=== PATIENT | male | born 1985 | race Caucasian/White ===

== ENCOUNTER 2018-05-02 19:48 | Emergency (ER) | payer MEDICAID ==
[~2018-05-02] VITALS: Ht 177.8 cm; Wt 75.0 kg
[2018-05-02 19:49] VITALS: Ht 177.8 cm; Wt 75.0 kg
[2018-05-02 22:31] VITALS: BP 111/66
== END 2018-05-02 22:31 | disposition home or self-care (01) ==
LOC: D.ER 19:48
DX: M79.661 Pain in right lower leg (principal); S86.911A Strain of unspecified muscle(s) and tendon(s) at lower leg level, right leg, initial encounter; X58.XXXA Exposure to other specified factors, initial encounter; Y93.89 Activity, other specified; Y92.019 Unspecified place in single-family (private) house as the place of occurrence of the external cause